=== PATIENT | female | born 1980 | race African-American/Black ===

== ENCOUNTER 2019-04-15 14:35 | Emergency (ER) | payer OTHER ==
[2019-04-15 14:59] VITALS: TEMP 98.9; BMI 33.0
[2019-04-15] MEDS ORDERED: ONDANSETRON 4 MG/2 ML VIAL IVPUSH ONE (15:20)
[2019-04-15] MEDS ORDERED: KETOROLAC TROMETHAMINE 30 MG/1 ML VIAL IVPUSH ONE (15:20)
[2019-04-15] MEDS ORDERED: KETOROLAC TROMETHAMINE 30 MG/1 ML VIAL ONE (15:27)
[2019-04-15] MEDS ORDERED: ONDANSETRON 4 MG/2 ML VIAL ONE ×2 (15:27→15:28)
--- NOTE | 2019-04-15 15:42 | PDOC ---
History of Present Illness - General Chief Complaint: Pain Stated Complaint: ABD PAIN Time Seen by Provider: 04/15/19 15:20 History Source: Patient Exam Limitations: No Limitations - History of Present Illness Initial Comments: 04/15/19 15:39 CHIEF COMPLAINT: Flank pain HISTORY OF PRESENT ILLNESS: This is an otherwise healthy 39-year-old female presents for evaluation of sudden onset of left flank pain and nausea last night. Patient reports pain has been constant. She denies dysuria or hematuria. She denies vomiting, diarrhea, constipation, fevers/chills, or any other symptoms. Family history is notable for 20 was from pancreatic cancer. Vital signs on arrival are notable for heart rate of 114. PCP is Dr. Vila in [place]. REVIEW OF SYSTEMS: GENERAL/CONSTITUTIONAL: No fever or chills. No weakness. No weight change. HEAD, EYES, EARS, NOSE AND THROAT: No change in vision. No ear pain or discharge. No sore throat. CARDIOVASCULAR: No chest pain or palpitations. RESPIRATORY: No cough, wheezing, or shortness of breath. GASTROINTESTINAL: Nausea. No vomiting, diarrhea or constipation. GENITOURINARY: Left flank pain. No dysuria, frequency, or change in urination. MUSCULOSKELETAL: No joint or muscle swelling or pain. No neck or back pain. SKIN: No rash or easy bruising. NEUROLOGIC: No headache, vertigo, loss of consciousness, or loss of sensation. PSYCHIATRIC: No depression or anxiety. ENDOCRINE: No increased thirst. No abnormal weight change. HEMATOLOGIC/LYMPHATIC: No anemia, easy bleeding, or history of blood clots. ALLERGIC/IMMUNOLOGIC: No hives or skin allergy. No latex allergy. PHYSICAL EXAM: GENERAL: The patient is awake, alert, and fully oriented, in no acute distress. HEAD: Normal with no signs of trauma. ENT: Pupils equal, round and reactive to light, extraocular movements intact, sclera anicteric, conjunctiva clear. Neck supple. LUNGS: Clear to auscultation bilaterally. Normal excursion. No respiratory distress or use of accessory muscles. CV: RRR, S1/S2, no MRG. Cap refill < 2 sec. ABDOMEN: Soft, obese, tender to palpation left lower quadrant, left CVA tenderness to gentle palpation. EXTREMITIES: Normal range of motion, no edema. NEUROLOGICAL: Normal speech, normal gait. CN II-XII grossly intact. PSYCH: Normal mood, normal affect. SKIN: Warm, dry, normal turgor, no rashes or lesions noted. Past History - Past Medical History Allergies/Adverse Reactions: Allergies Allergy/AdvReac Type Severity Reaction Status Date / Time No Known Allergies Allergy Verified 04/15/19 14:53 Home Medications: Ambulatory Orders NK [No Known Home Medication] 04/15/19 Cardiac Disorders: Yes CVA: Yes (lt sided weakness) COPD: No GI Disorders: Yes Psychiatric Problems: Yes (ptsd) - Surgical History Cardiac Surgery: Yes (fileter in aorta) - Suicide/Smoking/Psychosocial Hx Smoking History: Current every day smoker Have you smoked in the past 12 months: Yes Number of Cigarettes Smoked Daily: 1 Information on smoking cessation initiated: No Hx Alcohol Use: No Drug/Substance Use Hx: No *Physical Exam - Vital Signs Last Vital Signs Temp Pulse Resp BP Pulse Ox 98.9 F 114 H 20 142/90 97 04/15/19 14:54 04/15/19 14:54 04/15/19 14:54 04/15/19 14:54 04/15/19 14:54 ED Treatment Course - LABORATORY CBC & Chemistry Diagram: 04/15/19 15:20 04/15/19 16:29 Medical Decision Making - Medical Decision Making 04/15/19 15:42 A/P: 39-year-old female with left flank pain and nausea, left lower quadrant and left CVA tenderness on exam. Differential includes but is not limited to: UTI/pyelonephritis, renal colic. -Labs included CBC, CMP, UA/culture, urine -CT spiral renal stone protocol -Toradol 30 mg IV for pain, Zofran 4 mg IV for nausea Patient signed out to SHANT Durand to complete evaluation and determine disposition. 9 *DC/Admit/Observation/Transfer Diagnosis at time of Disposition: Acute left flank pain Ovarian cyst Qualifiers: Laterality: right Qualified Code(s): N83.201 - Unspecified ovarian cyst, right side - Discharge Dispostion Disposition: HOME Condition at time of disposition: Fair - Referrals Referrals: Angely Vila MD [Primary Care Provider] - - Patient Instructions Additional Instructions: Make an appointment with your doctor for continued evaluation of pain. Make an appointment with your gynb for evaluation of cyst. Return to the ER for any new or worsening symptoms. - Post Discharge Activity
[2019-04-15] MEDS ORDERED: SODIUM CHLORIDE 1,000 ML IV STA (16:02)
--- NOTE | 2019-04-15 16:07 | PDOC ---
*Physical Exam - Vital Signs Last Vital Signs Temp Pulse Resp BP Pulse Ox 98.9 F 114 H 20 142/90 97 04/15/19 14:54 04/15/19 14:54 04/15/19 14:54 04/15/19 14:54 04/15/19 14:54 ED Treatment Course - LABORATORY CBC & Chemistry Diagram: 04/15/19 15:20 04/15/19 16:29 - Medications Given in the ED: ED Medications Discontinued Medications Generic Name Dose Route Start Last Admin Trade Name Ani PRN Reason Stop Dose Admin Ketorolac Tromethamine 30 mg 04/15/19 15:20 04/15/19 15:40 Toradol Injection - IVPUSH 04/15/19 15:21 30 mg ONCE ONE Administration Ondansetron HCl 4 mg 04/15/19 15:20 04/15/19 15:40 Zofran Injection IVPUSH 04/15/19 15:21 4 mg ONCE ONE Administration Medical Decision Making - Medical Decision Making 04/15/19 16:07 Pt seen by Midlevel Provider under my direct supervision Ancillary studies reviewed I agree with plan as outlined by Midlevel Provider *DC/Admit/Observation/Transfer Diagnosis at time of Disposition: Acute left flank pain, Ovarian cyst - Discharge Dispostion Disposition: HOME Condition at time of disposition: Fair - Referrals Referrals: Angely Vila MD [Primary Care Provider] - - Patient Instructions Additional Instructions: Make an appointment with your doctor for continued evaluation of pain. Make an appointment with your gynb for evaluation of cyst. Return to the ER for any new or worsening symptoms. - Post Discharge Activity
[2019-04-15 16:27] LABS: PH,URINE 5.5 (5.0-8.0); URINE APPEARANCE CLEAR; URINE BILIRUBIN NEGATIVE (NEGATIVE); URINE COLOR YELLOW; URINE GLUCOSE (UA) NEGATIVE (NEGATIVE); URINE KETONE TRACE (NEGATIVE); URINE LEUK ESTERASE NEGATIVE (NEGATIVE); URINE NITRITE NEGATIVE (NEGATIVE); URINE PROTEIN TRACE (NEGATIVE)
[2019-04-15 16:36] LABS: BASO % 0.5 % (0-2.0); EOS % 2.2 % (0-4.5); HEMATOCRIT 36.6 % (32.4-45.2); MCH 27.3 pg (25.7-33.7); MCHC 32.9 g/dl (32.0-36.0); MEAN CELL VOLUME 82.7 fl (80-96); MEAN PLT VOLUME 9.3 fl (7.5-11.1); NEUT % 70.3 % (42.8-82.8); PLATELET COUNT 363 K/MM3 (134-434); RBC 4.42 M/mm3 (3.60-5.2); RDW 14.7 % (11.6-15.6); WHITE BLOOD COUNT 9.5 K/mm3 (4.0-10.0)
[2019-04-15 17:09] LABS: ALBUMIN 3.7 g/dl (3.4-5.0); BILIRUBIN,TOTAL 0.2 mg/dL (0.2-1); BLOOD UREA NITROGEN 12.6 mg/dL (7-18); CALCIUM 8.8 mg/dL (8.5-10.1); CREATININE 0.9 mg/dL (0.55-1.3); POTASSIUM 4.1 mmol/L (3.5-5.1); TOT PROT 7.4 g/dl (6.4-8.2)
--- NOTE | 2019-04-15 17:11 | PDOC ---
*Physical Exam - Vital Signs Last Vital Signs Temp Pulse Resp BP Pulse Ox 98.9 F 114 H 20 142/90 97 04/15/19 14:54 04/15/19 14:54 04/15/19 14:54 04/15/19 14:54 04/15/19 14:54 - Physical Exam General Appearance: Yes: Appropriately Dressed. No: Apparent Distress Neck: positive: Trachea midline Respiratory/Chest: positive: Lungs Clear, Normal Breath Sounds. negative: Respiratory Distress, Accessory Muscle Use Cardiovascular: positive: Regular Rhythm, Regular Rate (82 apically). negative : Murmur Gastrointestinal/Abdominal: positive: Normal Bowel Sounds, Tender (LLQ to mild palpation), Soft Musculoskeletal: positive: CVA Tenderness (L) ED Treatment Course - LABORATORY CBC & Chemistry Diagram: 04/15/19 15:20 04/15/19 16:29 - ADDITIONAL ORDERS Additional order review: Laboratory Results 04/15/19 04/15/19 04/15/19 16:29 15:30 15:30 Sodium 141 Potassium 4.1 Chloride 108 H Carbon Dioxide 27 Anion Gap 6 L BUN 12.6 Creatinine 0.9 Est GFR (CKD-EPI)AfAm 92.05 Est GFR (CKD-EPI)NonAf 79.42 Random Glucose 88 Calcium 8.8 Total Bilirubin 0.2 AST 17 ALT 40 Alkaline Phosphatase 105 Total Protein 7.4 Albumin 3.7 Urine Color Yellow Urine Appearance Clear Urine pH 5.5 Ur Specific [place] 1.030 Urine Protein Trace Urine Glucose (UA) Negative Urine Ketones Trace H Urine Blood Negative Urine Nitrite Negative Urine Bilirubin Negative Urine Urobilinogen 1.0 Ur Leukocyte Esterase Negative Urine HCG, Qual Negative 04/15/19 15:20 Sodium Cancelled Potassium Cancelled Chloride Cancelled Carbon Dioxide Cancelled Anion Gap Cancelled BUN Cancelled Creatinine Cancelled Est GFR (CKD-EPI)AfAm Cancelled Est GFR (CKD-EPI)NonAf Cancelled Random Glucose Cancelled Calcium Cancelled Total Bilirubin Cancelled AST Cancelled ALT Cancelled Alkaline Phosphatase Cancelled Total Protein Cancelled Albumin Cancelled Urine Color Urine Appearance Urine pH Ur Specific [place] Urine Protein Urine Glucose (UA) Urine Ketones Urine Blood Urine Nitrite Urine Bilirubin Urine Urobilinogen Ur Leukocyte Esterase Urine HCG, Qual 04/15/19 15:20 RBC 4.42 MCV 82.7 MCHC 32.9 RDW 14.7 MPV 9.3 Neutrophils % 70.3 Lymphocytes % 21.0 Monocytes % 6.0 Eosinophils % 2.2 Basophils % 0.5 - Medications Given in the ED: ED Medications Discontinued Medications Generic Name Dose Route Start Last Admin Trade Name Ani PRN Reason Stop Dose Admin Sodium Chloride 1,000 mls @ 1,000 mls/hr 04/15/19 16:02 04/15/19 16:24 Normal Saline - IV 04/15/19 17:01 1,000 mls/hr ASDIR STA Administration Ketorolac Tromethamine 30 mg 04/15/19 15:20 04/15/19 15:40 Toradol Injection - IVPUSH 04/15/19 15:21 30 mg ONCE ONE Administration Ondansetron HCl 4 mg 04/15/19 15:20 04/15/19 15:40 Zofran Injection IVPUSH 04/15/19 15:21 4 mg ONCE ONE Administration Progress Note - Progress Note Progress Note: Received signout from nurse practitioner Lidia. Briefly this is a 39-year-old woman with sudden onset left flank pain and nausea starting last night. Pain has been constant over that time. Laboratory testing is pending including CBC, CMP, urinalysis and urine testing Patient has received Toradol IV as well as normal saline 1 L IV bolus Patient is pending CAT scan at this time Medical Decision Making - Medical Decision Making 04/15/19 19:46 CAT scan is read by imaging key person: Mild atelectasis and scarring and lung bases. No pleural effusions. Small hiatal hernia. Social hepatic granuloma. Cholelithiasis. Small epigastric ventral hernias containing fat. Pancreas, adrenal glands and spleen are grossly unremarkable. No renal or urinary calculi. Retroaortic left renal vein. No AAA. Indwelling IVC filter. No evidence for diverticulitis, appendicitis, small bowel obstruction, free fluid or free air. Moderate leiomyomatous uterus 5.6 cm x 4.8 cm right pelvic cystic mass probably related to the right ovary. Ultrasound could be useful for further evaluation. Chronic bilateral pars defects at L5 with grade 1 spondylolisthesis. Results of CAT scan of been shared with the patient reports she has a known cyst on her right ovary. Patient reports will follow-up with her research neuropsychologist for continued evaluation. Oral trial Reevaluate 04/15/19 20:25 Tolerating PO without difficulty. Discharge home. *DC/Admit/Observation/Transfer Diagnosis at time of Disposition: Acute left flank pain Ovarian cyst Qualifiers: Laterality: right Qualified Code(s): N83.201 - Unspecified ovarian cyst, right side - Discharge Dispostion Disposition: HOME Condition at time of disposition: Fair Decision to Admit order: No - Referrals Referrals: Angely Vila MD [Primary Care Provider] - - Patient Instructions Additional Instructions: Make an appointment with your doctor for continued evaluation of pain. Make an appointment with your gynb for evaluation of cyst. Return to the ER for any new or worsening symptoms. - Post Discharge Activity
[2019-04-15] MEDS ORDERED: morphine CARPU-JECT 2 MG/1 ML DISP.SYRIN IVPUSH ONE (17:22)
[2019-04-15] MEDS ORDERED: MORPHINE SULFATE 2 MG/ML VIAL ONE (17:28)
[2019-04-15 17:35] VITALS: BP 129/87; PULSE 106
== END 2019-04-15 20:40 | disposition home or self-care (01) ==
LOC: JER 14:35
PROC: 3E0337Z Introduction of Electrolytic and Water Balance Substance into Peripheral Vein, Percutaneous Approach (ICD-10-PCS; principal; 2019-04-15)
PROC: 3E033NZ Introduction of Analgesics, Hypnotics, Sedatives into Peripheral Vein, Percutaneous Approach (ICD-10-PCS; 2019-04-15)
PROC: 3E0333Z Introduction of Anti-inflammatory into Peripheral Vein, Percutaneous Approach (ICD-10-PCS; 2019-04-15)
PROC: 3E033GC Introduction of Other Therapeutic Substance into Peripheral Vein, Percutaneous Approach (ICD-10-PCS; 2019-04-15)
DX: R10.32 Left lower quadrant pain (principal); N83.201 Unspecified ovarian cyst, right side; I69.854 Hemiplegia and hemiparesis following other cerebrovascular disease affecting left non-dominant side; F43.10 Post-traumatic stress disorder, unspecified
CPT/HCPCS: 36415; 74176-TC; 80053; 81003; 84703; 85025; 87086; 96361; 96374; 96375; 99283-25; J7030

== ENCOUNTER 2019-04-21 08:55 | Observation (INO) | payer OTHER ==
[2019-04-21] MEDS ORDERED: ASPIRIN 325 MG TABLET PO ONE (09:15)
[2019-04-21] MEDS ORDERED: ASPIRIN 325 MG TABLET ONE (10:01)
[2019-04-21 10:26] LABS: BASO % 0.6 % (0-2.0); HEMATOCRIT 34.4 % (32.4-45.2); HEMOGLOBIN 11.2 GM/dL (10.7-15.3); MCH 27.1 pg (25.7-33.7)
[2019-04-21 10:38] LABS: INR 1.03 (0.83-1.09); PROTHROMBIN TIME (PATIENT) 12.1 SEC (9.7-13.0)
[2019-04-21 10:40] LABS: ACTIVATED PTT 31.3 SECONDS (25.2-36.5)
[2019-04-21 10:55] LABS: EOS % 4.6 % (0-4.5); LYMPH % 22.5 % (8-40); MCHC 32.7 g/dl (32.0-36.0); MEAN CELL VOLUME 83.1 fl (80-96); MEAN PLT VOLUME 8.7 fl (7.5-11.1); MONO % 4.9 % (3.8-10.2); NEUT % 67.4 % (42.8-82.8); PLATELET COUNT 278 K/MM3 (134-434); RBC 4.14 M/mm3 (3.60-5.2); WHITE BLOOD COUNT 5.9 K/mm3 (4.0-10.0)
[2019-04-21 11:03] LABS: ALBUMIN 3.3 g/dl (3.4-5.0); ALK PHOS 105 U/L (45-117); ANION GAP 3 MMOL/L (8-16); BILIRUBIN,TOTAL 0.2 mg/dL (0.2-1); BLOOD UREA NITROGEN 7.3 mg/dL (7-18); CALCIUM 8.2 mg/dL (8.5-10.1); CHLORIDE 109 mmol/L (98-107); CO2 30 mmol/L (21-32); CREATININE 0.8 mg/dL (0.55-1.3); GLUCOSE,RANDOM 92 mg/dL (74-106); N-TERMINAL BNP 119.1 pg/ml (5-125); POTASSIUM 3.8 mmol/L (3.5-5.1); SGOT/AST 14 U/L (15-37); SGPT/ALT 41 U/L (13-61); SODIUM 143 mmol/L (136-145); TOT PROT 6.6 g/dl (6.4-8.2)
[2019-04-21] MEDS ORDERED: ACETAMINOPHEN 325 MG TABLET (FP) PO ONE (11:24)
[2019-04-21] MEDS ORDERED: ACETAMINOPHEN 325 MG TABLET (FP) ONE ×2 (11:31→21:20)
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
--- NOTE | 2019-04-21 13:26 | EKG ---
Test Reason : Blood Pressure : / mmHG Vent. Rate : 093 BPM Atrial Rate : 093 BPM P-R Int : 174 ms QRS Dur : 094 ms QT Int : 380 ms P-R-T Axes : 031 -21 049 degrees QTc Int : 472 ms NORMAL SINUS RHYTHM MODERATE VOLTAGE CRITERIA FOR LVH, MAY BE NORMAL VARIANT POOR R WAVE PROGRESSION NO PREVIOUS ECGS AVAILABLE Confirmed by BENNIE AVILA MD ([id number]) on 04/21/2019 1:26:26 PM Referred By: Confirmed By:BENNIE AVILA MD
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
[2019-04-21] MEDS ORDERED: ACETAMINOPHEN 1000 MG/100 ML VIAL (NON FORMULARY) IVPB ONE ×2 (21:19→23:51)
[2019-04-21] MEDS: NICOTINE 14 MG/24 HOURS TOPICAL PATCH TD SCH (21:25)
[2019-04-21] MEDS ORDERED: NITROGLYCERIN SUBLINGUAL 1/150 0.4 MG TAB SL ONE (23:51)
[2019-04-21] MEDS ORDERED: ACETAMINOPHEN 500 MG TABLET (FP) PO ONE (23:53)
[2019-04-22 01:43] VITALS: BMI 38.8
[2019-04-22] MEDS ORDERED: PT OWN MED DRAWER 7, Y5N ONE (02:52)
[2019-04-22] MEDS ORDERED: ACETAMINOPHEN 325 MG TABLET (FP) PO STA (04:43)
[2019-04-22 08:07] LABS: ALBUMIN 3.2 g/dl (3.4-5.0); ALK PHOS 115 U/L (45-117); ANION GAP 7 MMOL/L (8-16); BILIRUBIN,TOTAL 0.2 mg/dL (0.2-1); BLOOD UREA NITROGEN 8.8 mg/dL (7-18); CALCIUM 8.4 mg/dL (8.5-10.1); CHLORIDE 107 mmol/L (98-107); CHOLESTEROL 173 mg/dL (50-200); CO2 30 mmol/L (21-32); CREATININE 0.8 mg/dL (0.55-1.3); GLUCOSE,RANDOM 92 mg/dL (74-106); HDL CHOLESTEROL 61 mg/dL (40-60); MAGNESIUM 2.1 mg/dL (1.8-2.4); PHOSPHOROUS 4.5 mg/dL (2.5-4.9); POTASSIUM 3.4 mmol/L (3.5-5.1); SGOT/AST 13 U/L (15-37); SGPT/ALT 39 U/L (13-61); SODIUM 143 mmol/L (136-145); TOT PROT 6.4 g/dl (6.4-8.2); TRIGLYCERIDES 46 mg/dL (0-150)
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
--- NOTE | 2019-04-22 09:30 | EKG ---
Test Reason : Blood Pressure : / mmHG Vent. Rate : 098 BPM Atrial Rate : 098 BPM P-R Int : 198 ms QRS Dur : 094 ms QT Int : 382 ms P-R-T Axes : 049 -09 049 degrees QTc Int : 487 ms NORMAL SINUS RHYTHM MODERATE VOLTAGE CRITERIA FOR LVH, MAY BE NORMAL VARIANT NONSPECIFIC T WAVE ABNORMALITY PROLONGED QT ABNORMAL ECG WHEN COMPARED WITH ECG OF 21-APR-2019 09:14, NO SIGNIFICANT CHANGE WAS FOUND Confirmed by RAEANN NAVAS, VANNESA ([id number]) on 04/22/2019 9:29:49 AM Referred By: Confirmed By:VANNESA CARY MD
[2019-04-22 10:03] LABS: BASO % 0.7 % (0-2.0); EOS % 4.4 % (0-4.5); HEMATOCRIT 32.2 % (32.4-45.2); HEMOGLOBIN 10.5 GM/dL (10.7-15.3); LYMPH % 24.2 % (8-40); MCH 27.3 pg (25.7-33.7); MCHC 32.7 g/dl (32.0-36.0); MEAN CELL VOLUME 83.5 fl (80-96); MEAN PLT VOLUME 8.6 fl (7.5-11.1); NEUT % 65.7 % (42.8-82.8); RBC 3.86 M/mm3 (3.60-5.2); RDW 14.2 % (11.6-15.6)
[2019-04-22] MEDS ORDERED: POTASSIUM CHLORIDE ORAL LIQUID 20 MEQ/15 ML PO ONE (10:15)
[2019-04-22 10:20] LABS: PLATELET COUNT 268 K/MM3 (134-434)
[2019-04-22] MEDS: NICOTINE 14 MG/24 HOURS TOPICAL PATCH TD SCH (10:32)
[2019-04-22] MEDS: ENOXAPARIN NA (PORCINE) 40 MG/0.4 ML DISP.SYRIN SQ SCH (10:32)
[2019-04-22] MEDS: ACETAMINOPHEN 325 MG TABLET (FP) PO PRN (18:14)
[2019-04-23] MEDS: ACETAMINOPHEN 325 MG TABLET (FP) PO PRN ×3 (06:54→21:33)
[2019-04-23] MEDS: ENOXAPARIN NA (PORCINE) 40 MG/0.4 ML DISP.SYRIN SQ SCH (09:16)
[2019-04-23] MEDS: NICOTINE 14 MG/24 HOURS TOPICAL PATCH TD SCH ×2 (09:16→09:23)
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
[2019-04-24 07:28] VITALS: TEMP 97.7
[2019-04-24 08:36] LABS: BLOOD UREA NITROGEN 10.6 mg/dL (7-18); CALCIUM 8.9 mg/dL (8.5-10.1); CREATININE 0.9 mg/dL (0.55-1.3); MAGNESIUM 2.2 mg/dL (1.8-2.4); PHOSPHOROUS 4.3 mg/dL (2.5-4.9); POTASSIUM 4.2 mmol/L (3.5-5.1)
[2019-04-24] MEDS ORDERED: REGADENOSON 0.4 MG/5 ML PRE-FILLED SYRINGE IVPUSH ONE ×2 (09:47→10:15)
--- NOTE | 2019-04-24 11:03 | ECHO ---
Name: DORIS GTZ Exam:Adult Echocardiogram Study Date: 04/24/2019 08:03 AM Age: 39 yrs Reason For Study: Rule out ACS Height: 66 in Weight: 240 lb BSA: 2.2 m2 MMode/2D Measurements & Calculations IVSd: 1.0 cm ACS: 1.9 cm LVIDd: 4.0 cm LVIDs: 2.8 cm LVPWd: 1.1 cm EDV(Teich): 69.2 ml LVOT diam: 1.9 cm ESV(Teich): 28.3 ml RV S Serjio: 9.9 cm/sec Doppler Measurements & Calculations MV E max serjio: 71.3 cm/sec TR max serjio: 212.3 cm/sec MV A max serjio: 69.9 cm/sec TR max P.1 mmHg MV E/A: 1.0 Med Peak E' Serjio: 7.6 cm/sec Med E/e': 9.4 Lat Peak E' Serjio: 7.0 cm/sec Lat E/e': 10.2 Procedure A complete two-dimensional transthoracic echocardiogram was performed (2D, M-mode, Doppler and color flow Doppler). Left Ventricle The left ventricle is normal in size. Left ventricular systolic function is normal. Ejection Fraction = 55- 60%. No regional wall motion abnormalities noted. Right Ventricle The right ventricle is normal size. The right ventricular systolic function is normal. RV systolic TD I is 10 cm/s. Atria The left atrial size is normal. Right atrial size is normal. Mitral Valve The mitral valve is normal in structure and function. There is mild mitral regurgitation. Tricuspid Valve The tricuspid valve is normal in structure and function. No tricuspid regurgitation. Right ventricula r systolic pressure is normal. Aortic Valve The aortic valve is normal in structure and function. No aortic regurgitation is present. Pulmonic Valve The pulmonic valve is not well visualized. Great Vessels The aortic root is normal size. Pericardium/Pleura Small pericardial effusion (<1cm). Interpretation Summary The left ventricle is normal in size. Left ventricular systolic function is normal. No regional wall motion abnormalities noted. Ejection Fraction = 55-60%. The right ventricular systolic function is normal. The left atrial size is normal. Right atrial size is normal. There is mild mitral regurgitation. Right ventricular systolic pressure is normal. Small pericardial effusion (<1cm) Matias Perez MD 04/24/2019 11:02 AM
[2019-04-24] MEDS: NICOTINE 14 MG/24 HOURS TOPICAL PATCH TD SCH (12:57)
[2019-04-24] MEDS: ENOXAPARIN NA (PORCINE) 40 MG/0.4 ML DISP.SYRIN SQ SCH (12:58)
[2019-04-24] MEDS: ACETAMINOPHEN 325 MG TABLET (FP) PO PRN (12:59)
[2019-04-24 14:49] VITALS: BP 123/62; PULSE 102
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
== END 2019-04-24 15:20 | disposition home or self-care (01) ==
LOC: JER 08:55 → JERBED 14:37 → J4W 22:37
PROVIDERS: ADMIT Internal Medicine; ATTEND Internal Medicine
PROC: 3E033NZ Introduction of Analgesics, Hypnotics, Sedatives into Peripheral Vein, Percutaneous Approach (ICD-10-PCS; principal; 2019-04-21)
PROC: 3E033GC Introduction of Other Therapeutic Substance into Peripheral Vein, Percutaneous Approach (ICD-10-PCS; 2019-04-21)
DX: R07.9 Chest pain, unspecified (principal); R60.0 Localized edema; E87.6 Hypokalemia; F17.210 Nicotine dependence, cigarettes, uncomplicated; Z87.828 Personal history of other (healed) physical injury and trauma; Z95.828 Presence of other vascular implants and grafts
CPT/HCPCS: 36415; 71046-TC-FY; 78452-TC; 80048; 80053; 80061; 82550; 83721; 83735; 83880; 84100; 84443; 84484; 84703; 85025; 85610; 85730; 93005; 93010; 93017; 93306-TC; 93970-TC; 96374; 96375; 99283-25; A9502; G0378; J0131; J2785

== ENCOUNTER 2019-05-31 12:04 | Emergency (ER) | payer OTHER ==
[2019-05-31 12:13] VITALS: BP 130/74; PULSE 104; TEMP 98.6; BMI 38.7
[2019-05-31] MEDS ORDERED: ONDANSETRON 4 MG/2 ML VIAL IVPUSH ONE (12:55)
[2019-05-31] MEDS ORDERED: KETOROLAC TROMETHAMINE 30 MG/1 ML VIAL IVPUSH ONE (12:55)
[2019-05-31] MEDS ORDERED: SODIUM CHLORIDE 1,000 ML IV STA (12:55)
[2019-05-31] MEDS ORDERED: KETOROLAC TROMETHAMINE 30 MG/1 ML VIAL ONE (13:03)
[2019-05-31] MEDS ORDERED: ONDANSETRON 4 MG/2 ML VIAL ONE (13:04)
[2019-05-31 13:27] LABS: PH,URINE 6.5 (5.0-8.0); URINE APPEARANCE CLOUDY; URINE BILIRUBIN NEGATIVE (NEGATIVE); URINE COLOR YELLOW; URINE GLUCOSE (UA) NEGATIVE (NEGATIVE); URINE KETONE NEGATIVE (NEGATIVE); URINE LEUK ESTERASE NEGATIVE (NEGATIVE); URINE NITRITE NEGATIVE (NEGATIVE); URINE PROTEIN NEGATIVE (NEGATIVE)
[2019-05-31 13:28] LABS: BASO % 0.8 % (0-2.0); EOS % 4.3 % (0-4.5); HEMATOCRIT 36.4 % (32.4-45.2); HEMOGLOBIN 11.9 GM/dL (10.7-15.3); MCH 27.1 pg (25.7-33.7); MCHC 32.6 g/dl (32.0-36.0); MEAN CELL VOLUME 83.1 fl (80-96); MEAN PLT VOLUME 8.6 fl (7.5-11.1); MONO % 5.2 % (3.8-10.2); NEUT % 63.7 % (42.8-82.8); PLATELET COUNT 246 K/MM3 (134-434); RBC 4.38 M/mm3 (3.60-5.2); RDW 14.5 % (11.6-15.6); WHITE BLOOD COUNT 6.9 K/mm3 (4.0-10.0)
[2019-05-31 13:47] LABS: ALBUMIN 3.7 g/dl (3.4-5.0); BILIRUBIN,TOTAL 0.2 mg/dL (0.2-1); CREATININE 0.9 mg/dL (0.55-1.3); POTASSIUM 4.1 mmol/L (3.5-5.1); TOT PROT 7.4 g/dl (6.4-8.2)
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
== END 2019-05-31 16:30 | disposition home or self-care (01) ==
LOC: JER 12:04
PROC: 3E0333Z Introduction of Anti-inflammatory into Peripheral Vein, Percutaneous Approach (ICD-10-PCS; principal; 2019-05-31)
PROC: 3E0337Z Introduction of Electrolytic and Water Balance Substance into Peripheral Vein, Percutaneous Approach (ICD-10-PCS; 2019-05-31)
PROC: 3E033GC Introduction of Other Therapeutic Substance into Peripheral Vein, Percutaneous Approach (ICD-10-PCS; 2019-05-31)
DX: D25.9 Leiomyoma of uterus, unspecified (principal); I69.354 Hemiplegia and hemiparesis following cerebral infarction affecting left non-dominant side; Z87.828 Personal history of other (healed) physical injury and trauma; Z95.828 Presence of other vascular implants and grafts
CPT/HCPCS: 36415; 76830-TC; 76856-TC; 80053; 81003; 84703; 85025; 87086; 96361; 96374; 96375; 99283-25; J7030